=== PATIENT | male | born 1955 | race Caucasian/White ===

== ENCOUNTER 2019-11-16 16:49 | Emergency (ER) | payer BC ==
[2019-11-16 16:53] VITALS: BP 163/79; PULSE 58
[2019-11-16] MEDS ORDERED: Sodium Chloride 0.9% 1,000 ML IV SCH (17:00)
--- NOTE | 2019-11-16 17:00 | EDM.PDOC ---
ED HPI GENERAL MEDICAL PROBLEM - General Chief Complaint: Syncope Stated Complaint: MEDICAL [facility] Time Seen by Provider: 11/16/19 16:57 Source of Information: Reports: Patient History Limitations: Reports: No Limitations - History of Present Illness INITIAL COMMENTS - FREE TEXT/NARRATIVE: [place]. He may not have hydrating well. 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 Onset: Sudden Duration: Hour(s): Location: Reports: Generalized, Other (pt passed out. ) Associated Symptoms: Reports: Syncope, Weakness - Related Data Allergies Allergy/AdvReac Type Severity Reaction Status Date / Time hydrochlorothiazide Allergy Other Verified 11/16/19 16:59 Home Meds: Home Meds trandolapriL [Mavik] 4 mg PO DAILY 06/20/15 [History] FLUoxetine HCl [Prozac] 20 mg PO DAILY 11/16/19 [History] Hydrocodone/Acetaminophen [Hydrocodon-Acetaminophen 5-325] 1 tab PO ASDIRECTED 11/16/19 [History] amLODIPine Besylate [Amlodipine Besylate] 5 mg PO DAILY 11/16/19 [History] Past Medical History HEENT History: Reports: Cataract Cardiovascular History: Reports: Arrhythmia, Hypertension Musculoskeletal History: Reports: Back Pain, Chronic Oncologic (Cancer) History: Reports: Squamous Cell Carcinoma - Infectious Disease History Infectious Disease History: Reports: Chicken Pox, Measles, Mumps, Rubella - Past Surgical History Musculoskeletal Surgical History: Reports: Shoulder Replacement, Shoulder Surgery, Other (See Below) Social & Family History - Family History Family Medical History: Noncontributory ED ROS GENERAL - Review of Systems Review Of Systems: See Below Constitutional: Reports: Weakness, Fatigue HEENT: Reports: No Symptoms Respiratory: Reports: No Symptoms Cardiovascular: Reports: Syncope Endocrine: Reports: No Symptoms GI/Abdominal: Reports: No Symptoms : Reports: No Symptoms Musculoskeletal: Reports: No Symptoms Skin: Reports: No Symptoms ED EXAM, GENERAL - Physical Exam Exam: See Below Free Text/Narrative:: pt arrived after having a syncopal episode 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 He had been out fishing and it was quite warm. He has not been putting fluids in such as he should. He had a stressful day yesterday with alot of mechanical issues. Exam Limited By: No Limitations General Appearance: Alert, No Apparent Distress, Anxious, Other (pt is feeling better since he was given fluids. ) Ears: Normal TMs Nose: Normal Inspection Throat/Mouth: Normal Inspection Head: Atraumatic Neck: Normal Inspection Respiratory/Chest: No Respiratory Distress Cardiovascular: Regular Rate, Rhythm GI/Abdominal: Soft (Male) Exam: Deferred Rectal (Males) Exam: Deferred Back Exam: Normal Inspection Extremities: Normal Inspection Neurological: Alert, Oriented, Normal Cognition Psychiatric: Normal Affect Course - Vital Signs Last Recorded V/S: Last Vital Signs Temp 36.3 C 11/16/19 16:55 Pulse 58 L 11/16/19 16:55 Resp 15 11/16/19 16:55 BP 163/79 H 11/16/19 16:55 Pulse Ox 98 11/16/19 16:55 - Orders/Labs/Meds Orders: Active Orders 24 hr Category Date Time Status Cardiac Monitoring [RC] .As Directed Care 11/16/19 16:55 Active EKG Documentation Completion [RC] ASDIRECTED Care 11/16/19 16:59 Active Orthostatic Vital Signs [RC] ASDIRECTED Care 11/16/19 17:38 Active Sodium Chloride 0.9% [Normal Saline] 1,000 ml Med 11/16/19 17:00 Active IV ASDIRECTED EKG 12 Lead [EK] Routine Ther 11/16/19 16:59 Ordered Medication Orders Sodium Chloride (Normal Saline) 1,000 mls @ 999 mls/hr IV ASDIRECTED ANNA Last Admin: 11/16/19 17:10 Dose: 999 mls/hr Documented by: SEYMOUR Labs: Laboratory Tests 11/16/19 11/16/19 11/16/19 Range/Units 16:54 17:04 17:04 WBC 7.3 (4.5-11.0) K/uL RBC 5.25 (4.30-5.90) M/uL Hgb 14.8 (12.0-15.0) g/dL Hct 44.8 (40.0-54.0) % MCV 85 (80-98) fL MCH 28 (27-31) pg MCHC 33 (32-36) % Plt Count 260 (150-400) K/uL Neut % (Auto) 78 H (36-66) % Lymph % (Auto) 12 L (24-44) % Robertson % (Auto) 8 H (2-6) % Eos % (Auto) 2 (2-4) % Baso % (Auto) 0 (0-1) % Sodium 139 L (140-148) mmol/L Potassium 3.9 (3.6-5.2) mmol/L Chloride 104 (100-108) mmol/L Carbon Dioxide 28 (21-32) mmol/L Anion Gap 10.9 (5.0-14.0) mmol/L BUN 21 H (7-18) mg/dL Creatinine 1.2 (0.8-1.3) mg/dL Est Cr Clr Drug Dosing 67.11 mL/min Estimated GFR (MDRD) > 60 (>60) Glucose 96 (74-106) mg/dL Calcium 8.7 (8.5-10.1) mg/dL Total Bilirubin 0.5 (0.2-1.0) mg/dL AST 18 (15-37) U/L ALT 30 (12-78) U/L Alkaline Phosphatase 62 (46-116) U/L Troponin I (0.000-0.056) ng/mL Total Protein 7.0 (6.4-8.2) g/dL Albumin 3.7 (3.4-5.0) g/dL Globulin 3.3 (2.3-3.5) g/dL Albumin/Globulin Ratio 1.1 L (1.2-2.2) Urine Color Yellow (YELLOW) Urine Appearance Clear (CLEAR) Urine pH 5.5 (5.0-8.0) Ur Specific [place] 1.020 (1.008-1.030) Urine Protein Negative (NEGATIVE) mg/dL Urine Glucose (UA) Negative (NEGATIVE) mg/dL Urine Ketones Negative (NEGATIVE) mg/dL Urine Occult Blood Negative (NEGATIVE) Urine Nitrite Negative (NEGATIVE) Urine Bilirubin Negative (NEGATIVE) Urine Urobilinogen 0.2 (0.2-1.0) EU/dL Ur Leukocyte Esterase Negative (NEGATIVE) Urine RBC 0-5 (0-5) Urine WBC 0-5 (0-5) Ur Epithelial Cells Rare Amorphous Sediment Not seen Urine Bacteria Rare Urine Mucus Few // Range/Units 17:04 WBC (4.5-11.0) K/uL RBC (4.30-5.90) M/uL Hgb (12.0-15.0) g/dL Hct (40.0-54.0) % MCV (80-98) fL MCH (27-31) pg MCHC (32-36) % Plt Count (150-400) K/uL Neut % (Auto) (36-66) % Lymph % (Auto) (24-44) % Robertson % (Auto) (2-6) % Eos % (Auto) (2-4) % Baso % (Auto) (0-1) % Sodium (140-148) mmol/L Potassium (3.6-5.2) mmol/L Chloride (100-108) mmol/L Carbon Dioxide (21-32) mmol/L Anion Gap (5.0-14.0) mmol/L BUN (7-18) mg/dL Creatinine (0.8-1.3) mg/dL Est Cr Clr Drug Dosing mL/min Estimated GFR (MDRD) (>60) Glucose (74-106) mg/dL Calcium (8.5-10.1) mg/dL Total Bilirubin (0.2-1.0) mg/dL AST (15-37) U/L ALT (12-78) U/L Alkaline Phosphatase (46-116) U/L Troponin I < 0.017 (0.000-0.056) ng/mL Total Protein (6.4-8.2) g/dL Albumin (3.4-5.0) g/dL Globulin (2.3-3.5) g/dL Albumin/Globulin Ratio (1.2-2.2) Urine Color (YELLOW) Urine Appearance (CLEAR) Urine pH (5.0-8.0) Ur Specific [place] (1.008-1.030) Urine Protein (NEGATIVE) mg/dL Urine Glucose (UA) (NEGATIVE) mg/dL Urine Ketones (NEGATIVE) mg/dL Urine Occult Blood (NEGATIVE) Urine Nitrite (NEGATIVE) Urine Bilirubin (NEGATIVE) Urine Urobilinogen (0.2-1.0) EU/dL Ur Leukocyte Esterase (NEGATIVE) Urine RBC (0-5) Urine WBC (0-5) Ur Epithelial Cells Amorphous Sediment Urine Bacteria Urine Mucus Meds: Medications Generic Name Dose Route Start Last Admin Trade Name Freq PRN Reason Stop Dose Admin Sodium Chloride 1,000 mls @ 999 mls/hr 11/16/19 17:00 11/16/19 17:10 Normal Saline IV 999 mls/hr ASDIRECTED ANNA Administration - Re-Assessments/Exams Free Text/Narrative Re-Assessment/Exam: 11/16/19 17:48 PT RECEIVED 1500 CC OF FLUID AND IS FEELING MUCH BETTER. hIS EKG WAS NORMAL hE HAD A NORMAL TROP AND HIS LABS LOOK GOOD. hE DID NOT HAVE PAIN ANYWHERE. Departure - Departure Time of Disposition: 17:49 Disposition: Home, Self-Care 01 Condition: Fair Clinical Impression: Dehydration, Heat exposure Referrals: Martin Zuniga MD [Primary Care Provider] - Forms: ED Department Discharge Care Plan Goals: PUSH FLUIDS. BE WATCHFUL FOR THE NEXT FEW DAYS REGARDING HYDRATION AND OVER EXPOSURE TO HEAT. RTC IF FURTHER PROBLEMS. Sepsis Event Note (ED) - Focused Exam Vital Signs: Vital Signs Temp Pulse Resp BP Pulse Ox 11/16/19 16:55 36.3 C 58 L 15 163/79 H 98 11/16/19 16:51 36.3 C 58 L 15 163/79 H 98 - My Orders Last 24 Hours: My Active Orders 11/16/19 16:55 Cardiac Monitoring [RC] .As Directed 11/16/19 16:59 EKG Documentation Completion [RC] ASDIRECTED EKG 12 Lead [EK] Routine 11/16/19 17:00 Sodium Chloride 0.9% [Normal Saline] 1,000 ml IV ASDIRECTED 11/16/19 17:38 Orthostatic Vital Signs [RC] ASDIRECTED - Assessment/Plan Last 24 Hours: My Active Orders 11/16/19 16:55 Cardiac Monitoring [RC] .As Directed 11/16/19 16:59 EKG Documentation Completion [RC] ASDIRECTED EKG 12 Lead [EK] Routine 11/16/19 17:00 Sodium Chloride 0.9% [Normal Saline] 1,000 ml IV ASDIRECTED 11/16/19 17:38 Orthostatic Vital Signs [RC] ASDIRECTED
== END 2019-11-16 18:19 | disposition home or self-care (01) ==
LOC: JP.ED 16:49
DX: T67.8XXA Other effects of heat and light, initial encounter (principal); E86.0 Dehydration; Z88.8 Allergy status to other drugs, medicaments and biological substances; Z79.899 Other long term (current) drug therapy; I10 Essential (primary) hypertension
CPT/HCPCS: 36415; 80053; 81001; 84484; 85025; 93005; 96360; 99285; J7030; 93010; 99284